=== PATIENT | female | born 1980 | race Caucasian/White ===

== ENCOUNTER 2022-12-14 15:14 | Outpatient (CLI) | payer OTHER, SELFPAY ==
--- NOTE | 2022-12-14 15:20 | CRLHL7_ITS ---
For Patients: As a result of the Century Cures Act, medical imaging exams and procedure reports are released immediately into your electronic medical record. You may view this report before your referring provider. If you have questions, please contact your health care provider. BILATERAL SCREENING MAMMOGRAM WITH COMPUTER-AIDED DETECTION TECHNIQUE: CC and MLO views were obtained. These mammographic images have been obtained using full-field digital technique. These mammographic images were interpreted with the benefit of computer-aided detection. COMPARISON FILM: Baseline. FINDINGS: There are scattered areas of fibroglandular density IMPRESSION: There is no radiographic evidence for malignancy. ASSESSMENT: BI-RADS Category 1: Negative RECOMMENDATION: Routine screening mammogram in 1 year. A lay language report of this examination will be provided to the patient. Logan De La Garza M.D. Diagnostic Radiologist [email or web address] JOANNE/[email or web address] / be/Dictated by: Logan De La Garza MD @ 12/15/2022 8:19:00 AM (Electronically Signed)
== END 2022-12-14 15:15 | disposition home or self-care (01) ==
LOC: MAMMO 15:15
PROVIDERS: PCP Internal Medicine; Visit Provider Internal Medicine
DX: Z12.31 Encounter for screening mammogram for malignant neoplasm of breast (principal)
CPT/HCPCS: 77067

== ENCOUNTER 2023-12-07 08:03 | Outpatient (CLI) | payer OTHER, SELFPAY ==
--- OUTSIDE RECORDS SUMMARY | 2023-12-10 14:31 | XMS_ITS | Clinical Summary ---
Author Organization [facility] [employer] [facility] Address [place], [place] [address] Care Team Providers Care Info Print Press Operator Name Role Phone Pcp, No Primary Care Provider Unavailabl e Allergies Active Allergy Reactions Criticality Noted Date Comments Penicillins GI Upset 09/05/2006 Medications Medication Sig Dispensed Refills Start Date End Date Status levothyroxine (SYNTHROID) 88 mcg tabletIndications:Hyp othyroidism (acquired) Take 1 tablet by mouth before breakfast. 90 tablet 3 06/05/2018 Active sertraline (ZOLOFT) 100 mg tabletIndications:Anx iety state,Dysthymic disorder Take 1.5 tablets by mouth once daily. 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 Anxiety state, unspecified 10/23/2006 Dysthymic disorder 09/05/2006 Immunizations Name Administration Dates Next Due AMB Influenza, IIV4 PF (=>6 mos Flulaval,Fluzone Fluarix)(Flu Clinic Only) 02/25/2019 COVID-19 vaccine ([employer] NTech 30mcg/0.3mL) PF, MDV 03/30/2021 DT (Age < 7 years) 12/29/1991 Hepatitis B (Peds) 10/27/2002,12/04/2000, 001 MMR 09/05/1994 Td (Age >=7 Years) 10/27/2002 Tdap 02/06/2014 Family History Medical History Relation Name Comments Alzheimer's disease Maternal Grandfather Heart Disease Maternal Grandfather Alzheimer's disease Maternal Grandmother Glaucoma Maternal Grandmother Thyroid Disease Mother Heart Disease Other Hypertension Paternal Grandfather Leukemia Paternal Grandfather Relation Name Status Comments Maternal Grandfather Maternal Grandmother Mother Other Paternal Grandfather Social History Tobacco Use Types Packs/Day Years Used Date Smoking Tobacco: Never Smokeless Tobacco: Never Tobacco Cessation:Counseling Given: Yes Alcohol Use Standard Drinks/Week Comments Yes 0 (1 standard drink = 0.6 oz pur e alcohol) PHQ-2 Answer Date Recorded PHQ-2 Score 2 07/21/2018 Sex and Gender Information Value Date Recorded Sex Assigned at Not on file Gender Identity Not on file Sexual Orientation Not on file Obstetrics History Last Filed Vital Signs Vital Sign Reading Time Taken Comments Blood Pressure 126/87 06/05/2018 4:12 PM PROGRAM PARAPROFESSIONAL Pulse 65 06/05/2018 4:12 PM PROGRAM PARAPROFESSIONAL Temperature 36.9 ??C (98.5 ??F) 06/05/2018 4:12 PM CS T Respiratory Rate - - Oxygen Saturation 99% 06/05/2018 4:12 PM PROGRAM PARAPROFESSIONAL Inhaled Oxygen Concentration - - Weight 117.6 kg (259 lb 4.8 oz) 06/05/2018 4:12 PM PROGRAM PARAPROFESSIONAL Height 169.1 cm (5' 6.58) 06/05/2018 4:12 PM CS T Body Mass Index 41.13 06/05/2018 4:12 PM PROGRAM PARAPROFESSIONAL Plan of Treatment Health Maintenance Due Date Last Done Comments HIV for age 15-65 1997 Hepatitis C screening for age 18-79 2000 BMI (ht and wt on same day) for age 18+ 06/05/2019 06/05/2018 Depression screening for age 12+ 06/05/2019 06/05/2018 COVID-19 vaccine series (2022- season) 2023 03/30/2021, 08/30/2020 Pap test for age 21-65 06/05/2023 9, 06/05/2018, 08/21/2013, Additional history exists Influenza for age 9-49 01/20/2024 02/25/2019 Tetanus booster 02/07/2024 02/06/2014, 10/27/2002 Tdap Completed 02/06/2014 Pneumococcal series for age 6-64 Aged Out No longer eligible based on patient's age to complete this topic Procedures Procedure Name Priority Date/Time Associated Diagnosis Comments ENFORCEMENT OFFICER THIN PREP PAP SCREEN IMAGED Routine 06/05/2018 4:40 PM PROGRAM PARAPROFESSIONAL Screening for malignant neoplasm of cervix from Last 3 Months or Most Recently Relevant to Health Maintenance Results * ENFORCEMENT OFFICER THIN PREP PAP SCREEN IMAGED [[id number]] (06/05/2018 4:40 PM PROGRAM PARAPROFESSIONAL) Case Report Gynecologic Cytology Report ? Case: [id number] ? Authorizing Provider: ??Allie Alcaraz MD ? Collected: ? 06/05/2018 1640 ? Ordering Location: ? [facility] ?? Received: ?06/05/2018 1725 ? Clinic ? First Screen: ?Maris Nino ? Specimen: ?ENFORCEMENT OFFICER ThinPrep Vial Screening, Cervical ? 06/17/2018 1:38 PM PROGRAM PARAPROFESSIONAL [facility] INTERPRETATION/ RESULT NEGATIVE FOR INTRAEPITHELIAL LESION OR MALIGNANCY (NIL) (none) 06/17/2018 1:38 PM [facility] IMEN ADEQUACY Satisfactory for evaluation No endocervical component seen 06/17/2018 1:38 PM PROGRAM PARAPROFESSIONAL [facility] HPV REQUEST HPV and PAP 06/17/2018 1:38 PM PROGRAM PARAPROFESSIONAL [facility] Date of LMP 05/15/2018 06/17/2018 1:38 PM PROGRAM PARAPROFESSIONAL [facility] Last Pap Date UNKNOWN 06/17/2018 1:38 PM PROGRAM PARAPROFESSIONAL [facility] Last Pap Result NIL 9 1:38 PM [facility] Abnormal Pap or [place] Bx in last 5 years No 06/17/2018 1:38 PM [facility] Menstrual Status Regular Periods 06/17/2018 1:38 PM PROGRAM PARAPROFESSIONAL [facility] [place] Bx Done Today No 06/17/2018 1:38 PM [facility] Additional Information None given 06/17/2018 1:38 PM [facility] Automated Review Successful 06/17/2018 1:38 PM [facility] Comment:Specimen processed s uccessfully by automated marketing specialist device, ThinPrep Imaging System, [employer] ANCILLARY TESTING ENFORCEMENT OFFICER HPV Ordered, Please see separate report 06/17/2018 1:38 PM [facility] Note The pap test is a screening technique, not a diagnostic procedure. ??It is used primarily to screen for squamous cancers and precursor lesions. ??Published studies have shown that it is subject to both false negative and false positive results. ??The pap test should not be used as the sole means to diagnose or exclude pre-malignant and malignant lesions. Cytology is screened and interpreted at [facility] - [address], [place] [address] and [facility] - [address] [place] [address]; [place] [address] and [facility] - [address]; [place] [address] and [facility] [address]; [place] [address] 06/17/2018 1:38 PM PROGRAM PARAPROFESSIONAL [facility] Other (Cervical) Non-Blood / Unknown 06/05/2018 4:40 PM PROGRAM PARAPROFESSIONAL 06/05/2018 5:25 PM PROGRAM PARAPROFESSIONAL Allie Alcaraz MD PATHOLOGY/CYTOLOGY [facility] [address] [place] [address], from Last 3 Months or Most Recently Relevant to Health Maintenance Care Teams Info Print Press Operator Relationship Specialty Start Date End Date Pcp, No . PCP - General 11/28/22
== END 2023-12-07 08:04 | disposition home or self-care (01) ==
LOC: NFLDREF 12-10 14:30
PROVIDERS: PCP Internal Medicine; Referring Provider Internal Medicine; Visit Provider Internal Medicine
DX: E03.9 Hypothyroidism, unspecified (principal); Z13.220 Encounter for screening for lipoid disorders
CPT/HCPCS: 80061; 84443

== ENCOUNTER 2024-02-26 14:49 | Outpatient (CLI) | payer OTHER, SELFPAY ==
--- NOTE | 2024-02-26 15:00 | CRLHL7_ITS ---
For Patients: As a result of the Century Cures Act, medical imaging exams and procedure reports are released immediately into your electronic medical record. You may view this report before your referring provider. If you have questions, please contact your health care provider. BILATERAL SCREENING MAMMOGRAM WITH COMPUTER-AIDED DETECTION AND TOMOSYNTHESIS TECHNIQUE: CC and MLO views were obtained. These mammographic images have been obtained using full-field digital technique. These mammographic images were interpreted with the benefit of computer-aided detection. Breast Tomosynthesis was used in this interpretation. COMPARISON FILM: 12/10/22. FINDINGS: The breasts are almost entirely fatty. IMPRESSION: There is no radiographic evidence for malignancy. ASSESSMENT: BI-RADS Category 1: Negative RECOMMENDATION: Routine screening mammogram in 1 year. A lay language report of this examination will be provided to the patient. Logan De La Garza M.D. Diagnostic Radiologist [email or web address] SP/Dictated by: Logan De La Garza MD @ 02/27/2024 11:00:00 AM (Electronically Signed)
--- OUTSIDE RECORDS SUMMARY | 2024-02-26 15:00 | XMS_ITS | Clinical Summary ---
Author Organization [employer] [facility] [employer] Address [place], [place] [address] Care Team Providers Care Tour Guide Name Role Phone Pcp, No Primary Care [...] Anxiety state, unspecified 10/23/2006 Dysthymic disorder 09/05/2006 Encounters Date Type Department Care Team Description 12/27/2023 Lab Requisition [facility] [phone] Shakira Nguyen MD from Last 3 Months Immunizations Name Administration Dates Next Due AMB Influenza, IIV4 PF (=>6 mos Flulaval,Fluzone Fluarix)(Flu Clinic Only) 02/25/2019 COVID-19 vaccine ([employer] NTech 30mcg/0.3mL) PF MDV 03/30/2021 DT (Age < 7 years) [...] Comments Blood Pressure 126/87 06/05/2018 4:12 PM POLE LIFT OPERATOR Pulse 65 06/05/2018 4:12 PM POLE LIFT OPERATOR Temperature 36.9 ??C (98.5 ??F) 06/05/2018 4:12 PM CS T Respiratory Rate - - Oxygen Saturation 99% 06/05/2018 4:12 PM POLE LIFT OPERATOR Inhaled Oxygen Concentration - - Weight 117.6 kg (259 lb 4.8 oz) 06/05/2018 4:12 PM POLE LIFT OPERATOR Height 169.1 cm (5' 6.58) 06/05/2018 4:12 PM CS T Body Mass Index 41.13 06/05/2018 4:12 PM POLE LIFT OPERATOR Plan of Treatment Health Maintenance Due Date Last Done Comments HIV for age 15-65 1997 Hepatitis C screening for age 18-79 2000 BMI (ht and wt on same day) for age 18+ 06/05/2019 06/05/2018 Depression screening for age 12+ 06/05/2019 06/05/2018 COVID-19 vaccine series (2023- season) 2024 03/30/2021, 08/30/2020 Influenza for age 9-49 01/20/2024 02/25/2019 Tetanus booster 02/07/2024 02/06/2014, 10/27/2002 Pap test for age 21-65 12/26/2028 4, 12/27/2023, 06/05/2018, Additional history exists Tdap Completed 02/06/2014 Pneumococcal series for age 6-64 Aged Out No longer eligible based on patient's age to complete this topic Procedures Procedure Name Priority Date/Time Associated Diagnosis Comments LAB TRACKING EVENT Routine 12/27/2023 8: 40 AM CDT DATA CENTER MANAGER THIN PREP PAP SCREEN IMAGED Routine 12/27/2023 8:40 AM CDT HPV HIGH RISK Routine 12/27/2023 8:40 AM CDT from Last 3 Months Results * LAB TRACKING EVENT (12/27/2023 8:40 AM CDT) Other (Other) Client Collect / Unknown 12/27/2023 8:40 AM CDT 12/27/2023 3:45 PM CDT Shakira Nguyen MD LAB BILL ONLY [facility] [address] [place] [address], * DATA CENTER MANAGER THIN PREP PAP SCREEN IMAGED (12/27/2023 8:40 AM CDT) Case Report Gynecologic Cytology Report ? Case: [id number] ? Authorizing Provider: ??Shakira Nguyen MD ?Collected: ? 12/27/2023 0840 ? Ordering Location: ? [facility] ?Received: ?12/28/2023 0925 ? First Screen: ?Raymond Duong ? Specimen: ?DATA CENTER MANAGER ThinPrep Vial Screening, Vaginal ? 01/06/2024 9:22 AM CDT [facility] INTERPRETATION/ RESULT NEGATIVE FOR INTRAEPITHELIAL LESION OR MALIGNANCY (NIL) (none) 01/06/2024 9:22 AM T [facility] IMEN ADEQUACY Satisfactory for evaluation 01/06/2024 9:22 AM T [facility] HPV REQUEST HPV and PAP 01/06/2024 9:22 AM T [facility] Date of LMP 11/26/2023 01/06/2024 9:22 AM T [facility] Last Pap Date 01/06/2024 9:22 AM T [facility] Comment:2019 Normal Abnormal Pap or [place] Bx in last 5 years No 01/06/2024 9:22 AM T [facility] [place] Bx Done Today No 01/06/2024 9:22 AM T [facility] Additional Information 01/06/2024 9:22 AM T [facility] Comment: Interpreted at [facility] - [address], [place] [address] Automated Review Successful 01/06/2024 9:22 AM T [facility] Comment:Specimen processed s uccessfully by automated central processing technician device, ThinPrep Imaging System, [employer] ANCILLARY TESTING DATA CENTER MANAGER HPV Ordered, Please see separate report 01/06/2024 9:22 AM T [facility] Note The pap test is a screening technique, not a diagnostic procedure. It is used primarily to screen for squamous cancers and precursor lesions. Published studies have shown that it is subject to both false negative and false positive results. The pap test should not be used as the sole means to diagnose or exclude pre-malignant and malignant lesions. 01/06/2024 9:22 AM CDT [facility] Other VAGINAL SWAB / Unknown 12/27/2023 8:40 AM CDT 12/28/2023 9:25 AM CDT Shakira Nguyen MD PATHOLOGY/CYTOLOGY Performing Organization Address [facility] Co de Phone Number [facility] [address] [address], * HPV HIGH RISK (12/27/2023 8:40 AM CDT) TYPE 16 Negative Negative 12/31/2023 1:32 PM CDT [facility] TYPE 18 Negative Negative 12/31/2023 1:32 PM CDT [facility] OTHER HIGH RISK TYPES Negative Negative 12/31/2023 1:32 PM CDT [facility] Other VAGINAL SWAB / Unknown 12/27/2023 8:40 AM CDT 12/28/2023 9:25 AM CDT Narrative [facility] - 12/31/2023 1:32 PM CDT HPV types 16, 18, 31, 33, 35, 39, 45, 51, 52, 56, 58, 59, 66 and 68 DNA were undetectable or below the pre-set threshold. Methodology: Willard Sofi 4800 HPV Test Shakira Nguyen MD MICROBIOLOGY Performing Organization Address City/[facility] Co de Phone Number [facility] [address] [place] [address], from Last 3 Months Care Teams Tour Guide Relationship Specialty Start Date End Date Pcp, No . PCP - General 11/28/22
== END 2024-02-26 14:50 | disposition home or self-care (01) ==
LOC: MAMMO 14:49
PROVIDERS: PCP Internal Medicine; Visit Provider Internal Medicine
DX: Z12.31 Encounter for screening mammogram for malignant neoplasm of breast (principal)
CPT/HCPCS: 77063; 77067

== ENCOUNTER 2025-02-11 08:02 | Outpatient (CLI) | payer BC, SELFPAY | END 2025-02-11 08:03 | disposition home or self-care (01) | LOC: NFLDREF 02-13 14:37 | PROVIDERS: PCP Internal Medicine; Referring Provider Internal Medicine; Visit Provider Internal Medicine | DX: E03.9 Hypothyroidism, unspecified (principal) | CPT/HCPCS: 84443 ==

== ENCOUNTER 2025-03-03 16:45 | Outpatient (CLI) | payer BC, SELFPAY ==
--- NOTE | 2025-03-03 17:00 | CRLHL7_ITS ---
For Patients: As a result of the Cures Act, medical imaging exams and procedure reports are released immediately into your electronic medical record. You may view this report before your referring provider. If you have questions, please contact your health care provider. BILATERAL DIGITAL SCREENING MAMMOGRAM WITH COMPUTER-AIDED DETECTION AND TOMOSYNTHESIS 03/03/2025 CLINICAL HISTORY: Routine screening exam. COMPARISON: Mammogram 02/26/2024 12/14/2022. TECHNIQUE: Digital mammogram in CC and MLO projections including computer-aided detection (CAD) and tomosynthesis. BREAST COMPOSITION: There are scattered areas of fibroglandular density. FINDINGS: RIGHT Breast: There is an asymmetry in the lateral breast, posterior depth. LEFT Breast: No suspicious findings. IMPRESSION: RIGHT breast asymmetry. RECOMMENDATIONS: Additional mammographic views of the RIGHT breast including 90 degree lateral and spot compression CC. RIGHT breast ultrasound may also be required. [facility] will contact the patient. BI-RADS Category 0: Incomplete: Need Additional Imaging Evaluation Dictated by Maryuri Chavez MD @ 03/04/2025 7:24:25 AM/[place];jenae BRICE/Dictated by: Maryuri Chavez MD @ 03/04/2025 7:24:00 AM (Electronically Signed)
== END 2025-03-03 16:46 | disposition home or self-care (01) ==
LOC: MAMMO 16:46
PROVIDERS: PCP Internal Medicine; Visit Provider Internal Medicine
DX: Z12.31 Encounter for screening mammogram for malignant neoplasm of breast (principal); N63.10 Unspecified lump in the right breast, unspecified quadrant
CPT/HCPCS: 77063; 77067

== ENCOUNTER 2025-03-17 08:30 | Outpatient (CLI) | payer BC, SELFPAY ==
--- NOTE | 2025-03-17 08:45 | CRLHL7_ITS ---
For Patients: As a result of the Cures Act, medical imaging exams and procedure reports are released immediately into your electronic medical record. You may view this report before your referring provider. If you have questions, please contact your health care provider. RIGHT DIGITAL DIAGNOSTIC MAMMOGRAM WITH TOMOSYNTHESIS RIGHT BREAST ULTRASOUND CLINICAL HISTORY: RIGHT breast mass/asymmetry. COMPARISON: 03/03/2025, 02/26/2024, 12/14/2022 TECHNIQUE: Digital RIGHT mammogram in 2 projections. Tomosynthesis was used in this interpretation. Real-time ultrasound imaging of RIGHT breast with imaging documentation. BREAST COMPOSITION: There are scattered areas of fibroglandular density. FINDINGS: Additional mammogram images RIGHT breast submitted. Decreased conspicuity of previously noted asymmetric density. No architectural distortion. No suspicious calcifications. Targeted RIGHT breast ultrasound performed at 9 o`clock 11 cm from the nipple. Normal fibroglandular tissue is present. No fibrocystic change or mass. IMPRESSION: No evidence of malignancy. RECOMMENDATIONS: Routine screening mammography. A lay language report of this examination will be provided to the patient. BI-RADS Category 2. Benign. Dictated by Logan De La Garza MD @ 03/17/2025 9:53:22 AM/CRL:jenae BRICE/Dictated by: Logan De La Garza MD @ 03/17/2025 9:53:00 AM (Electronically Signed)
--- NOTE | 2025-03-17 09:15 | CRLHL7_ITS ---
For Patients: As a result of the Century Cures Act, medical imaging exams and procedure reports are released immediately into your electronic medical record. You may view this report before your referring provider. If you have questions, please contact your health care provider. PLEASE SEE RIGHT DIAGNOSTIC MAMMOGRAM OF SAME DAY. CRL:jenae BRICE/Dictated by: Logan De La Garza MD @ 03/17/2025 9:51:00 AM (Electronically Signed)
== END 2025-03-17 08:31 | disposition home or self-care (01) ==
LOC: MAMMO 08:31
PROVIDERS: PCP Internal Medicine; Visit Provider Internal Medicine
DX: N63.10 Unspecified lump in the right breast, unspecified quadrant (principal); R92.8 Other abnormal and inconclusive findings on diagnostic imaging of breast
CPT/HCPCS: 76642; 77065; G0279